=== PATIENT | female | born 1960 | race Caucasian/White ===

== ENCOUNTER → 2019-06-27 | Outpatient (CLI) | payer OTHER ==
[~2019-06-27] MED LIST: COMMIT PO; NITROSTAT0.4 MG/TAB SL; NORCO 325 MG-51 TAB PO
[2019-06-27 19:57] LABS: HEMATOCRIT 38.5 % (37.0-47.0); HEMOGLOBIN 12.8 g/dl (12.5-16.0)
[2019-06-27 20:08] LABS: ALBUMIN 4.1 gm/dL (3.5-5.0); BILIRUBIN,TOTAL 0.3 mg/dL (0.0-1.0); CALCIUM 9.7 mg/dL (8.4-10.2); CREATININE, serum 1.09 (0.52-1.25); POTASSIUM 4.6 mmol/L (3.4-5.0); TOTAL PROTEIN 7.1 gm/dL (6.4-8.2)
== END ==
LOC: ZCOL.LAB 19:28
PROVIDERS: Internal Medicine Rheumatology
DX: Z01.89 Encounter for other specified special examinations (principal)

== ENCOUNTER 2020-12-11 17:29 | Emergency (ER) | payer SELFPAY ==
[~2020-12-11] VITALS: Ht 180.3 cm; Wt 100.0 kg
[2020-12-11 17:54] VITALS: TEMP 98
[2020-12-11 18:16] LABS: BASO # 0.1 (0.0-0.2); BASO % 0.8 % (0.0-2.0); EOS # 1.2 (0.0-0.7); EOS % 10.5 % (0-4.0); GRAN # 7.7 (1.4-6.5); GRAN % 69.2 % (42.2-75.2); HEMOGLOBIN 10.6 g/dl (12.5-16.0); LYMPH # 1.5 (1.2-3.4); LYMPH % 13.5 % (20.0-51.0); MEAN CELL VOLUME 81 fl (80.0-100.0); MEAN CORPUSCULAR HEMOGLOBIN 25 pg (27.0-31.0); MEAN CORPUSCULAR HGB CONC 31 g/dl (33.0-37.0); MEAN PLATELET VOLUME 9.1 fl (7.4-10.4); MONO # 0.6 (0.1-0.6); MONO % 5.5 % (1.7-9.3); PLATELET COUNT 345 K/mm3 (130-400); RED BLOOD COUNT 4.28 M/mm3 (4.10-5.30); REDCELL DISTRIBUTION WIDTH-CV 14.5 % (11.5-14.5)
[2020-12-11 18:20] LABS: HEMATOCRIT 34.7 % (37.0-47.0)
[2020-12-11 19:08] LABS: ALANINE AMINOTRANSFERASE 18 U/L (4-34); ALBUMIN 3.7 gm/dL (3.5-5.0); ALKALINE PHOSPHATASE 132 U/L (50-136); ANION GAP 10 mmol/L (7-16); AST,SGOT 19 U/L (15-37); BILIRUBIN,TOTAL 0.2 mg/dL (0.0-1.0); BLOOD UREA NITROGEN 12 mg/dL (7-17); CALCIUM 8.7 mg/dL (8.4-10.2); CARBON DIOXIDE 24 mmol/L (22-30); CHLORIDE 106 mmol/L (98-107); CREATININE, serum 1.23 (0.52-1.25); GLUCOSE 111 mg/dL (74-106); POTASSIUM 3.4 mmol/L (3.4-5.0); SODIUM 139 mmol/L (137-145); TOTAL PROTEIN 7.6 gm/dL (6.4-8.2)
[2020-12-11 19:18] LABS: TROPONIN-I < 0.012 ng/mL (0.000-0.035)
[2020-12-11 20:05] VITALS: BP 158/90; PULSE 78
== END 2020-12-11 20:05 | disposition home or self-care (01) ==
LOC: COL.ER 17:29
PROVIDERS: Emergency Medicine
DX: R60.0 Localized edema (principal); I25.2 Old myocardial infarction; I10 Essential (primary) hypertension; E66.9 Obesity, unspecified; Z88.6 Allergy status to analgesic agent; Z87.891 Personal history of nicotine dependence
CPT/HCPCS: J1650; J7512

== ENCOUNTER → 2020-12-12 | Outpatient (CLI) | payer SELFPAY | LOC: COL.RAD 11:23 | DX: R60.0 Localized edema (principal) ==